=== PATIENT | female | born 1975 | race African-American/Black ===

== ENCOUNTER 2016-07-28 23:04 | Emergency (ER) | payer OTHER ==
[~2016-07-28] VITALS: Ht 165.1 cm; Wt 106.3 kg
[~2016-07-28 23:04] MED LIST: MOTRIN800 MG PO; NOHOMEMEDS
[2016-07-28] MEDS ORDERED: PHENTERMINE H37.5 MG PO (23:40)
[2016-07-29] MEDS ORDERED: CHERATUSSIN AC473 ML PO (00:57)
[2016-07-29] MEDS ORDERED: TESSALON PERLE100 MG PO (00:57)
[2016-07-29] MEDS ORDERED: ZITHROMAX Z-PA250 MG PO (00:57)
[2016-07-29 01:07] VITALS: BP 106/75
== END 2016-07-29 01:08 | disposition home or self-care (01) ==
LOC: EME 23:04 → RME 23:04
DX: J06.9 Acute upper respiratory infection, unspecified (principal)
CPT/HCPCS: 71020; 99281; 99283

== ENCOUNTER 2017-01-14 20:43 | Emergency (ER) | payer OTHER ==
[~2017-01-14] VITALS: Ht 167.6 cm; Wt 105.0 kg
[~2017-01-14 20:43] MED LIST changes: +CHERATUSSIN AC473 ML PO; +PHENTERMINE H37.5 MG PO; +TESSALON PERLE100 MG PO; +ZITHROMAX Z-PA250 MG PO
[2017-01-14 21:44] LABS: ADD MIUA? YES; BILIRUBIN NEGATIVE; BLOOD SMALL; COLOR YELLOW ((YELLOW)); GLUCOSE (STRIP) NEGATIVE; KETONES NEGATIVE; LEUKOCYTES NEGATIVE; NITRITE NEGATIVE; PROTEIN (STRIP) NEGATIVE; SPECIFIC GRAVITY 1.018 (1.000-1.030); UROBILINOGEN 0.2 MG/DL (0.2-1.0)
[2017-01-14 21:48] LABS: BACTERIA NONE SEEN /HPF; EPITHELIAL CELLS RARE /HPF; MUCUS TRACE /LPF; RED BLOOD CELLS 0-5 /HPF (0-5); UCUL ADDED? NO; WHITE BLOOD CELLS 0-5 /HPF (0-5)
[2017-01-14 21:50] LABS: HEMATOCRIT 36.1 % (36.0-46.0); MCH 27.1 PG (29.0-34.0); MCHC 31.9 G/DL (30.0-36.0); MCV 84.9 FL (83-99); RBC DIS.WIDTH-CV 14.2 % (11.8-14.6); RBC DIS.WIDTH-SD 43.9 % (39-53); RED BLOOD COUNT 4.25 M/uL (3.80-5.20); WHITE BLOOD COUNT 7.6 K/uL (4.1-10.2)
[2017-01-14 22:01] LABS: CHLORIDE 112 mEq/L (99-109); POTASSIUM 4.2 mEq/L (3.7-5.4); SODIUM 142 mEq/L (136-147)
[2017-01-14 22:03] LABS: GLUCOSE 90 mg/dL (70-99)
[2017-01-14 22:04] LABS: ANION GAP 8 MEQ/L (2-14)
[2017-01-14 22:05] LABS: TOTAL BILIRUBIN 0.1 mg/dL (0.0-1.0)
[2017-01-14 22:06] LABS: ALKALINE PHOSPHATASE 66 IU/L (3-129)
[2017-01-14 22:07] LABS: GFR ESTIMATE (CALCULATED) > 59 mL/min/
[2017-01-14 22:08] LABS: UREA NITROGEN (BUN) 17 mg/dL (9-23)
[2017-01-14 22:10] LABS: LIPASE 35 U/L (1.0-51.0); TROP-I INTERPRETATION NEGATIVE; TROPONIN-I < 0.01 ng/mL (0.0-0.30)
[2017-01-14 22:16] LABS: QUANTITATIVE HCG < 4.0 MIU/ML
[2017-01-14 22:39] LABS: HEMATOLOGY COMMENT 1 SN; MEAN PLAT.VOLUME 10.9 uM^3 (9.5-12.4); PLAT.SUFFICIENCY ADEQUATE; PLATELET COUNT 161 K/uL (156-360)
[2017-01-14 23:51] LABS: TROP-I INTERPRETATION NEGATIVE; TROPONIN-I < 0.01 ng/mL (0.0-0.30)
[2017-01-14] MEDS ORDERED: NAPROXEN500 MG PO (23:55)
[2017-01-14] MEDS ORDERED: FLEXERIL10 MG PO (23:55)
[2017-01-15 00:20] VITALS: BP 134/99
== END 2017-01-15 00:21 | disposition home or self-care (01) ==
LOC: EME 20:43
PROVIDERS: Physician Assistant
DX: M62.830 Muscle spasm of back (principal); R07.89 Other chest pain
CPT/HCPCS: 71020; 80053; 81003; 83690; 84484; 84702; 85027; 93005; 99281; 99284